=== PATIENT | male | born 1975 | race Caucasian/White ===

== ENCOUNTER 2023-05-09 06:22 | Day surgery (SDC) | payer OTHER ==
[2023-05-06 11:09] VITALS: BMI 25.8
[2023-05-09] MEDS ORDERED: PROPOFOL 40 ML ONE (08:25)
[2023-05-09] MEDS ORDERED: Lidocaine 1% PF 5 ML VIAL ONE (08:25)
== END 2023-05-09 09:20 | disposition home or self-care (01) ==
LOC: CSHSDC 06:22
PROVIDERS: ATTEND Internal Medicine Gastroenterology
PROC: 0DJD8ZZ Inspection of Lower Intestinal Tract, Via Natural or Artificial Opening Endoscopic (ICD-10-PCS; principal; 2023-05-09)
DX: Z12.11 Encounter for screening for malignant neoplasm of colon (principal); K64.8 Other hemorrhoids; I10 Essential (primary) hypertension; J45.909 Unspecified asthma, uncomplicated; K21.9 Gastro-esophageal reflux disease without esophagitis; Z79.899 Other long term (current) drug therapy; Z91.010 Allergy to peanuts
CPT/HCPCS: J2704

== ENCOUNTER 2023-05-13 05:54 | Day surgery (SDC) | payer OTHER ==
[2023-05-09 14:26] VITALS: BMI 25.8
[2023-05-13] MEDS ORDERED: EPINEPHrine 1 MG/ML VIAL ONE (06:39)
[2023-05-13] MEDS ORDERED: Oxymetazoline HCl 0.05% ( 15 ML ) ONE (06:50)
[2023-05-13] MEDS ORDERED: Dexmedetomidine 200 MCG/2 ML VIAL ONE (07:38)
[2023-05-13] MEDS ORDERED: PROPOFOL 20 ML ONE (07:42)
[2023-05-13] MEDS ORDERED: fentaNYL 50 mcg/mL 1 mL Vial ONE (07:43)
[2023-05-13] MEDS ORDERED: Lidocaine 1% PF 5 ML VIAL ONE (07:43)
[2023-05-13] MEDS ORDERED: Rocuronium Bromide 10 MG/ML (10ML VIAL) ONE (07:43)
[2023-05-13] MEDS ORDERED: Dexamethasone 20 MG/5 ML VIAL ONE (07:57)
[2023-05-13] MEDS ORDERED: Ondansetron PF 4 MG/2 ML Vial ONE (08:01)
[2023-05-13] MEDS ORDERED: Mupirocin 2% Ointment 22 GM Tube ONE (08:13)
[2023-05-13] MEDS ORDERED: ePHEDrine Sulfate 50 MG/10 ML VIAL ONE (08:19)
[2023-05-13] MEDS ORDERED: Glycopyrrolate 0.2 MG/ML 5 ML SYRINGE ONE (08:41)
[2023-05-13] MEDS ORDERED: CEFAZOLIN 1 GM VIAL ONE (09:57)
== END 2023-05-13 10:20 | disposition home or self-care (01) ==
LOC: CSHSDC 05:54
PROVIDERS: ATTEND Otolaryngology Plastic Surgery within the Head & Neck
PROC: 095L0ZZ Destruction of Nasal Turbinate, Open Approach (ICD-10-PCS; principal; 2023-05-13)
PROC: 09QM0ZZ Repair Nasal Septum, Open Approach (ICD-10-PCS; principal; 2023-05-13)
DX: J34.2 Deviated nasal septum (principal); J34.3 Hypertrophy of nasal turbinates; J45.909 Unspecified asthma, uncomplicated; Z91.010 Allergy to peanuts
CPT/HCPCS: J0171; J0690; J1100; J2405; J2704; J3010